=== PATIENT | female | born 1985 | race African-American/Black ===

== ENCOUNTER 2019-12-25 15:00 | Emergency (ER) | payer MEDICAID, OTHER ==
[~2019-12-25] VITALS: Ht 160 cm; Wt 61.2 kg
[2019-12-25 16:00] VITALS: BP 112/78
== END 2019-12-25 18:04 | disposition home or self-care (01) ==
LOC: EDBD 15:00 → ER 15:00
DX: M54.5 Low back pain (principal); F17.210 Nicotine dependence, cigarettes, uncomplicated; V43.52XA Car driver injured in collision with other type car in traffic accident, initial encounter; Y93.89 Activity, other specified; Y92.410 Unspecified street and highway as the place of occurrence of the external cause; Y99.8 Other external cause status
CPT/HCPCS: 72125; 72131